=== PATIENT | male | born 1965 | race African-American/Black ===

== ENCOUNTER 2021-07-30 10:11 | Emergency (ER) | payer OTHER ==
[~2021-07-30] VITALS: Ht 175.3 cm; Wt 77.3 kg
[2021-07-30] MEDS ORDERED: PROPARACAINE HCL 0.5% 15 ML OPHTHALMIC SOLUTION OS ONE (10:45)
[2021-07-30] MEDS ORDERED: FLUORESCEIN SODIUM 1 MG STRIP OS ONE (10:45)
[2021-07-30] MEDS ORDERED: IBUPROFEN 400 MG TABLET PO ONE (12:30)
[2021-07-30] MEDS ORDERED: HYDROCODONE/ACETAMINOPHEN 5-325 MG TABLET PO ONE (12:30)
[2021-07-30 14:10] VITALS: BP 126/72
[2021-07-30] MEDS ORDERED: CIPROFLOXACIN HCL 0.3% 2.5 ML OPHTHALMIC SOLUTION OS ONE (14:15)
[2021-07-30] MEDS ORDERED: NEOMYCIN/POLYMYXIN B/DEXAMETH 3.5 GM OPHTHALMIC OINTMENT OS ONE (14:15)
== END 2021-07-30 18:38 | disposition home or self-care (01) ==
LOC: EMS 10:15
DX: H57.12 Ocular pain, left eye (principal); F17.210 Nicotine dependence, cigarettes, uncomplicated
CPT/HCPCS: 99173; 99284; Z7502; Z7610